=== PATIENT | female | born 1985 | race Two or more races ===

== ENCOUNTER 2023-01-10 14:33 | Emergency (ER) | payer OTHER ==
[~2023-01-10] VITALS: Ht 165.1 cm; Wt 130.0 kg
[2023-01-10 14:57] VITALS: BP 150/56
[2023-01-10] MEDS ORDERED: DICL-163 PO (17:47)
== END 2023-01-10 18:19 | disposition home or self-care (01) ==
LOC: ER 14:33
DX: S80.01XA Contusion of right knee, initial encounter (principal); W14.XXXA Fall from tree, initial encounter; Y93.89 Activity, other specified; Y92.89 Other specified places as the place of occurrence of the external cause; Y99.8 Other external cause status
CPT/HCPCS: 73562